=== PATIENT | male | born 1995 | race Hispanic/Latino ===

== ENCOUNTER 2019-04-11 17:08 | Emergency (ER) | payer SELFPAY ==
[2019-04-11] MEDS ORDERED: KETOROLAC 30 MG/ML INJ ONE (17:40)
[2019-04-11 18:34] LABS: Absolute Lymphocytes (CBC) 1.7 K/uL (0.7-4.9); Basophils % 0.3 % (0-1.3); Hematocrit 41.8 % (39.6-49.0); Lymphocytes % 26.8 % (15.3-44.8)
--- NOTE | 2019-04-11 18:41 | RAD REPORT ---
EXAM DESCRIPTION: RAD - Chest Pa And Lat (2 Views) - 04/11/2019 6:02 pm CLINICAL HISTORY: Chest pain COMPARISON: None. TECHNIQUE: PA and lateral views of the chest were obtained. FINDINGS: The lungs are clear. Heart size is normal and central vasculature is within normal limit s. No pleural effusion or pneumothorax seen. No acute bony finding noted. No aortic abnormality. IMPRESSION: No acute cardiopulmonary process.
[2019-04-11 18:46] LABS: ALT/SGPT 66 U/L (12-78); AST/SGOT 188 U/L (15-37); Albumin 4.2 g/dL (3.4-5.0); Alkaline Phosphatase 71 U/L (45-117); BUN Blood Urea Nitrogen 14 mg/dL (7-18); Bicarbonate 28 mmol/L (21-32); Bilirubin Direct < 0.1 mg/dL (0-0.2); Bilirubin Total 0.3 mg/dL (0.2-1.0); Glucose Level 90 mg/dL (74-106); Lipase 114 U/L (73-393); Protein, Total 7.7 g/dL (6.4-8.2); Sodium Level 142 mmol/L (136-145)
[2019-04-11] MEDS ORDERED: FAMOTIDINE 20 MG/2 ML VIAL IV ONE (19:03)
--- NOTE | 2019-04-11 19:05 | ER ---
Nurse's Notes [facility] Name: Michael Cobos Age: 24 yrs Sex: Male : 1995 Arrival Date: 04/11/2019 Time: 17:08 Bed 7 Private MD: Diagnosis: Epigastric pain Presentation: 04/11 17:09 Presenting complaint: Patient states: at 2 pm today, i started having chest pain, the hj same pain when i was a child, its a pressure type of pain when i breathe, denies radiating pain, denies N/V;. Transition of care: patient was not received from another setting of care. Onset of symptoms was April 11, 2019. Risk Assessment: Do you want to hurt yourself or someone else? Patient reports no desire to harm self or others. Initial Sepsis Screen: Does the patient meet any 2 criteria? No. Patient's initial sepsis screen is negative. Does the patient have a suspected source of infection? No. Patient's initial sepsis screen is negative. Care prior to arrival: None. 17:09 Method Of Arrival: Ambulatory 17:09 Acuity: MARIZA 3 hj Historical: - Allergies: 17:10 No Known Allergies; hj - PMHx: 17:10 None; hj - PSHx: 17:10 None; hj - Immunization history:: Adult Immunizations unknown. - Social history:: Smoking status: Patient/guardian denies using tobacco. - Ebola Screening: : No symptoms or risks identified at this time. Screenin:20 Abuse screen: Denies threats or abuse. Nutritional screening: No deficits noted. aa5 Tuberculosis screening: No symptoms or risk factors identified. Fall Risk None identified. Assessment: 17:20 General: Appears comfortable, Behavior is calm, cooperative. Pain: Complains of pain in aa5 anterior aspect of left upper chest and left breast Pain does not radiate. Pain currently is 8 out of 10 on a pain scale. Quality of pain is described as sharp, Pain began today around 1400. Pt states "this episodes has been going on since I was about 12 years old and I only get them about once a year" Is intermittent, Aggravated by increased activity, repositioning. Neuro: Level of Consciousness is awake, alert, obeys commands, Oriented to person, place, time, situation. Cardiovascular: Heart tones S1 S2 present Rhythm is regular. Respiratory: Airway is patent Respiratory effort is even, unlabored, Respiratory pattern is regular, symmetrical, Breath sounds are clear bilaterally. Denies cough, shortness of breath. GI: Abdomen is flat, non-distended, Bowel sounds present X 4 quads. Abd is soft and non tender X 4 quads. Patient currently denies diarrhea, nausea, vomiting. : No signs and/or symptoms were reported regarding the genitourinary system. EENT: No signs and/or symptoms were reported regarding the EENT system. Derm: Skin is pink, warm \\T\\ dry. Musculoskeletal: Range of motion: intact in all extremities. 18:00 Reassessment: Dr. Napier at bedside. Pt's sister states "I am concerned about him aa5 because he always complains about his stomach hurting (epigastric area) and he threw up blood the other day when he was drunk". 18:01 Reassessment: Pt now back from radiology. Pt states "I've had the stomach pains for a aa5 very long time and it comes and goes". pt currently denies epigastric pain, denies nausea/vomiting. . 19:10 Reassessment: Patient is alert, oriented x 3, equal unlabored respirations, skin aa5 warm/dry/pink. Vital Signs: 17:11 BP 126 / 69; Pulse 88; Resp 18; Temp 100.0(TE); Pulse Ox 99% on R/A; Weight 77.11 kg; hj Height 5 ft. 10 in. (177.80 cm); Pain 10/10; 19:05 BP 120 / 70; Pulse 84; Resp 18 S; Temp 98.8(TE); Pulse Ox 98% on R/A; Pain 7/10; aa5 17:11 Body Mass Index 24.39 (77.11 kg, 177.80 cm) ED Course: 17:08 Patient arrived in ED. 17:10 Triage completed. hj 17:11 Arm band placed on right wrist. 17:14 Barry Napier MD is Attending Physician. 17:20 Patient has correct armband on for positive identification. Placed in gown. Bed in low aa5 position. Call light in reach. Side rails up X 1. Adult w/ patient. 17:21 Shanelle Pena, RN is Primary Nurse. aa5 17:23 EKG done, by test engineering technician. reviewed by Barry Napier MD. sm3 17:58 XRAY Chest Pa And Lat (2 Views) In Process Unspecified. EDMS 18:10 Initial lab(s) drawn, by me, sent to lab. Inserted saline lock: 20 gauge in right aa5 antecubital area, using aseptic technique. Blood collected. 18:51 No provider procedures requiring assistance completed. aa5 19:10 IV discontinued, intact, bleeding controlled, No redness/swelling at site. Pressure aa5 dressing applied. Administered Medications: 18:05 Not Given (Patient Refused): TORadol - Ketorolac 15 mg IVP once aa5 18:19 Drug: TORadol - Ketorolac 15 mg Route: IVP; Site: right antecubital; aa5 18:30 Follow up: Response: No adverse reaction aa5 19:05 Drug: Pepcid 20 mg Route: IVP; Site: right antecubital; aa5 19:10 Follow up: Response: No adverse reaction aa5 Outcome: 19:03 Discharge ordered by . 19:10 Discharged to home ambulatory, with family. aa5 19:10 Condition: good 19:10 Discharge instructions given to patient, Instructed on discharge instructions, follow up and referral plans. medication usage, Demonstrated understanding of instructions, follow-up care, medications, Prescriptions given X 1. 19:13 Patient left the ED. aa5 Signatures: Dispatcher [employer] EDMN Shanelle Pena RN RN aa5 Loi John RN RN hj Starr, Gregory, MD MD [facility] Corrections: (The following items were deleted from the chart) 19:19 17:20 Pain: Complains of pain in anterior aspect of left upper chest and left breast aa5 Pain does not radiate. Pain currently is 8 out of 10 on a pain scale. Quality of pain is described as sharp, Pain began today around 1400. Is intermittent, Aggravated by increased activity, repositioning, aa5
--- NOTE | 2019-04-11 19:06 | EDPHYS ---
Physician Documentation [facility] Name: Michael Cobos Age: 24 yrs Sex: Male : 1995 Arrival Date: 04/11/2019 Time: 17:08 Bed 7 Private MD: ED Physician Barry Napier HPI: 04/11 18:58 This 24 yrs old Male presents to ER via Ambulatory with complaints of Chest gs Pain. 18:58 The patient or guardian reports chest pain that is located primarily in the epigastric gs area. Associated signs and symptoms: Pertinent positives: abdominal pain. Associated signs and symptoms: Pertinent positives: 1 EPISODE VOMITING WITH SOME BLOODY STREAKS. The chest pain is described as burning. Duration: The patient or guardian reports a single episode. Modifying factors: the symptoms are aggravated by cough, alcohol. Severity of pain: At its worst the pain was moderate in the emergency department the pain is unchanged. The patient has experienced a previous episode. Historical: - Allergies: 17:10 No Known Allergies; hj - PMHx: 17:10 None; hj - PSHx: 17:10 None; hj - Immunization history:: Adult Immunizations unknown. - Social history:: Smoking status: Patient/guardian denies using tobacco. - Ebola Screening: : No symptoms or risks identified at this time. ROS: 18:58 All other systems are negative. gs Exam: 18:58 Head/Face: Normocephalic, atraumatic. Eyes: Pupils equal round and reactive to light, gs extra-ocular motions intact. Lids and lashes normal. Conjunctiva and sclera are non-icteric and not injected. Cornea within normal limits. Periorbital areas with no swelling, redness, or edema. ENT: Nares patent. No nasal discharge, no septal abnormalities noted. Tympanic membranes are normal and external auditory canals are clear. Oropharynx with no redness, swelling, or masses, exudates, or evidence of obstruction, uvula midline. Mucous membranes moist. Neck: Trachea midline, no thyromegaly or masses palpated, and no cervical lymphadenopathy. Supple, full range of motion without nuchal rigidity, or vertebral point tenderness. No Meningismus. Chest/axilla: Normal chest wall appearance and motion. Nontender with no deformity. No lesions are appreciated. Cardiovascular: Regular rate and rhythm with a normal S1 and S2. No gallops, murmurs, or rubs. Normal PMI, no JVD. No pulse deficits. Respiratory: Lungs have equal breath sounds bilaterally, clear to auscultation and percussion. No rales, rhonchi or wheezes noted. No increased work of breathing, no retractions or nasal flaring. Back: No spinal tenderness. No costovertebral tenderness. Full range of motion. Skin: Warm, dry with normal turgor. Normal color with no rashes, no lesions, and no evidence of cellulitis. MS/ Extremity: Pulses equal, no cyanosis. Neurovascular intact. Full, normal range of motion. Neuro: Awake and alert, GCS 15, oriented to person, place, time, and situation. Cranial nerves II-XII grossly intact. Motor strength 5/5 in all extremities. Sensory grossly intact. Cerebellar exam normal. Normal gait. 18:58 Constitutional: The patient appears alert, awake. 18:58 Abdomen/GI: Palpation: mild abdominal tenderness, in the epigastric area, rebound tenderness, is not appreciated. 18:58 ECG was reviewed by the Attending Physician. Vital Signs: 17:11 BP 126 / 69; Pulse 88; Resp 18; Temp 100.0(TE); Pulse Ox 99% on R/A; Weight 77.11 kg; hj Height 5 ft. 10 in. (177.80 cm); Pain 10/10; 19:05 BP 120 / 70; Pulse 84; Resp 18 S; Temp 98.8(TE); Pulse Ox 98% on R/A; Pain 7/10; aa5 17:11 Body Mass Index 24.39 (77.11 kg, 177.80 cm) MDM: 17:26 Patient medically screened. 18:58 Differential diagnosis: pancreatitis, pleurisy, pneumonia. Data reviewed: vital signs, nurses notes, lab test result(s), EKG, radiologic studies. Counseling: I had a detailed discussion with the patient and/or guardian regarding: the historical points, exam findings, and any diagnostic results supporting the discharge/admit diagnosis, the need for outpatient follow up. 04/11 18:03 Order name: Basic Metabolic Panel; Complete Time: 18:57 04/11 18:03 Order name: CBC with Diff; Complete Time: 18:43 04/11 17:34 Order name: XRAY Chest Pa And Lat (2 Views); Complete Time: 18:43 04/11 18:03 Order name: Hepatic Function; Complete Time: 18:57 04/11 18:03 Order name: Lipase; Complete Time: 18:57 04/11 17:15 Order name: EKG; Complete Time: 17:16 04/11 18:03 Order name: IV Saline Lock; Complete Time: 18:19 04/11 18:03 Order name: Labs collected and sent; Complete Time: 18:19 EC:58 Rate is 90 beats/min. Rhythm is regular. ID interval is normal. QRS interval is normal. No Q waves. T waves are Normal. No ST changes noted. Clinical impression: Normal ECG. Interpreted by me. Administered Medications: 18:05 Not Given (Patient Refused): TORadol - Ketorolac 15 mg IVP once aa5 18:19 Drug: TORadol - Ketorolac 15 mg Route: IVP; Site: right antecubital; aa5 18:30 Follow up: Response: No adverse reaction aa5 19:05 Drug: Pepcid 20 mg Route: IVP; Site: right antecubital; aa5 19:10 Follow up: Response: No adverse reaction aa5 Disposition: 04/11/19 19:03 Discharged to Home. Impression: Epigastric pain. - Condition is Stable. - Discharge Instructions: Abdominal Pain, Adult. - Prescriptions for Pepcid 20 mg Oral Tablet - take 1 tablet by ORAL route every 12 hours for 10 days; 60 tablet. - Medication Reconciliation Form, Thank You Letter, Antibiotic Education, Prescription Opioid Use form. - Follow up: Private Physician; When: 2 - 3 days; Reason: Re-evaluation by your physician. Signatures: Dispatcher [employer] EDMS Shanelel Pena RN RN aa5 Loi John RN RN hj Starr, Gregory, MD MD Corrections: (The following items were deleted from the chart) 19:13 19:03 04/11/2019 19:03 Discharged to Home. Impression: Epigastric pain. Condition is aa5 Stable. Forms are Medication Reconciliation Form, Thank You Letter, Antibiotic Education, Prescription Opioid Use. Follow up: Private Physician; When: 2 - 3 days; Reason: Re-evaluation by your physician.
--- NOTE | 2019-04-12 07:48 | EKG ---
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
== END 2019-04-11 19:13 | disposition home or self-care (01) ==
LOC: ER 17:08
DX: R10.13 Epigastric pain (principal)
CPT/HCPCS: 36415; 71046; 80048; 80076; 83690; 85025; 93005; 96374; 96375; 99284